=== PATIENT | female | born 1965 | race American Indian/Alaskan Native ===

== ENCOUNTER 2017-11-20 10:48 | Emergency (ER) | payer OTHER ==
--- NOTE | 2017-11-20 11:16 | Emergency Department Report ---
ED Extremity Problem HPI - General Chief complaint: Extremity Injury, Lower Stated complaint: LEFT THIGH PAIN Time Seen by Provider: 11/20/17 11:16 Source: patient, family Mode of arrival: Ambulatory Limitations: No Limitations - History of Present Illness Initial comments: Visit was due to-year-old female here reports that she is on her left thigh pain for 2days. Report pain is 10 out of 10, sharp and achy. She says she took [id number] Tylenol without any relief. Denies any history of back pain or known history of arthritis. Last menstrual cycle was several in 2018 denies any nausea or vomiting. Denies any numbness or tachycardia when to extremities. Denies any trauma to extremities. She has a history of high blood pressure. She is here to be evaluated. She did not take any pain medication prior to coming to the hospital. MD Complaint: extremity pain Onset/Timin -: days(s) Location: left, lower extremity History of Same: No -: No myalgia, Yes arthralgia, No fever, No associated dyspnea, No associated chest pain Radiation: none Severity scale (0 -10): 10 Quality: aching, sharp Consistency: constant Improves with: rest Worsens with: walking, exertion Associated Symptoms: arthralgias. denies: chest pain, shortness of breath, fever, myalgias, rash - Related Data Previous Rx's Medication Instructions Recorded Last Taken Type Cyclobenzaprine [Flexeril] 10 mg PO TID PRN #15 tablet 11/20/17 Unknown Rx traMADol [Ultram] 50 mg PO Q6HR PRN #15 tablet 11/20/17 Unknown Rx Allergies Allergy/AdvReac Type Severity Reaction Status Date / Time No Known Allergies Allergy Unverified 11/20/17 11:05 ED Review of Systems ROS: Stated complaint: LEFT THIGH PAIN Other details as noted in HPI Constitutional: denies: chills, fever ENT: denies: ear pain, throat pain, congestion Respiratory: denies: cough, shortness of breath, SOB with exertion, SOB at rest , wheezing Cardiovascular: denies: chest pain, palpitations, edema, syncope Gastrointestinal: denies: abdominal pain, nausea, vomiting, diarrhea, constipation Genitourinary: denies: urgency, dysuria, discharge Musculoskeletal: arthralgia. denies: back pain, joint swelling, myalgia Skin: denies: rash, lesions Neurological: abnormal gait. denies: headache, weakness, numbness, paresthesias , vertigo ED Past Medical Hx - Past Medical History Previous Medical History?: Yes Hx Hypertension: Yes - Surgical History Past Surgical History?: Yes Additional Surgical History: tubaligation - Family History Family history: hypertension - Social History Smoking Status: Never Smoker Substance Use Type: Prescribed - Medications Home Medications: Home Medications Medication Instructions Recorded Confirmed Last Taken Type Cyclobenzaprine [Flexeril] 10 mg PO TID PRN #15 tablet 11/20/17 Unknown Rx traMADol [Ultram] 50 mg PO Q6HR PRN #15 tablet 11/20/17 Unknown Rx ED Physical Exam - General Limitations: No Limitations General appearance: alert, in no apparent distress - Head Head exam: Present: atraumatic, normocephalic, normal inspection - Eye Eye exam: Present: normal appearance, PERRL, EOMI Pupils: Present: normal accommodation - ENT ENT exam: Present: normal exam, normal orophraynx, mucous membranes moist - Neck Neck exam: Present: normal inspection, full ROM, other (no C-spine tenderness). Absent: tenderness, lymphadenopathy - Respiratory Respiratory exam: Present: normal lung sounds bilaterally. Absent: respiratory distress, chest wall tenderness - Cardiovascular Cardiovascular Exam: Present: regular rate, normal rhythm, normal heart sounds. Absent: systolic murmur, diastolic murmur - GI/Abdominal GI/Abdominal exam: Present: soft, normal bowel sounds. Absent: distended, tenderness, guarding, rebound, rigid - Extremities Exam Extremities exam: Present: normal inspection, full ROM, normal capillary refill , other (no clubbing, cyanosis or edema. Pulses 2+ extremities and no neurovascular compromise. +5 strength all extremities. No contusion, laceration or abrasion to extremities.). Absent: tenderness, pedal edema, joint swelling, calf tenderness - Expanded Lower Extremity Exam Left Hip exam: Present: normal inspection, full ROM, pelvic stability. Absent: tenderness, swelling, abrasion, laceration, ecchymosis, deformity, crepidus, dislocation, erythema, external rotation, internal rotation, shortening Upper Leg exam: Present: normal inspection, full ROM. Absent: tenderness, swelling, abrasion, laceration, ecchymosis, deformity, crepidus, dislocation, erythema Knee exam: Present: normal inspection, full ROM, full knee extension. Absent: tenderness, swelling, abrasion, laceration, ecchymosis, deformity, crepidus, dislocation, erythema, effusion, pain w/ pronation/supination, posterior draw sign, pain/laxity with valgus, pain/laxity with varus Lower Leg exam: Present: normal inspection, full ROM. Absent: tenderness, swelling, abrasion, laceration, ecchymosis, deformity, crepidus, dislocation, erythema, palpable cord, Giuseppe's sign Ankle exam: Present: normal inspection, full ROM. Absent: tenderness, swelling , abrasion, laceration, ecchymosis, deformity, crepidus, dislocation, erythema Foot/Toe exam: Present: normal inspection, full ROM. Absent: tenderness, swelling, abrasion, laceration, ecchymosis, deformity, crepidus, dislocation, erythema, amputation, puncture wound, foreign body, calcaneal tenderness, tenderness at base of 5th metatarsal, nail avulsion, subungual hematoma Neuro vascular tendon exam: Present: no vascular compromise. Absent: pulse deficit, abnormal cap refill, motor deficit, sensory deficit, tendon deficit, extremity cold to touch, pallor, abnormal 2-point discrimination, decreased fine /light touch, foot drop, peroneal nerve deficit, significant pain with passive ROM of distal joint Gait: Positive: observed and limited by pain - Back Exam Back exam: Present: normal inspection, full ROM, other (ambulates without any difficulties). Absent: tenderness, CVA tenderness (R), CVA tenderness (L), muscle spasm, paraspinal tenderness, vertebral tenderness, rash noted - Expanded Back Exam Expanded Back exam: Negative Straight Leg Raising: Left, Right - Neurological Exam Neurological exam: Present: alert, oriented X3, abnormal gait (patient noticed to be limping due to pain to left thigh), reflexes normal. Absent: motor sensory deficit - Psychiatric Psychiatric exam: Present: normal affect, normal mood - Skin Skin exam: Present: warm, dry, intact, normal color. Absent: rash ED Course Vital Signs 11/20/17 11/20/17 11/20/17 11:05 12:37 13:37 Temperature 98.1 F Pulse Rate 89 Respiratory 18 18 18 Rate Blood Pressure 128/90 O2 Sat by Pulse 97 Oximetry - Reevaluation(s) Reevaluation #1: 11/20/17 14:46 ED Medical Decision Making - Lab Data Result diagrams: 11/20/17 13:08 Lab Results 11/20/17 11/20/17 Range/Units 13:08 13:08 WBC 9.6 (4.5-11.0) K/mm3 RBC 4.56 (3.65-5.03) M/mm3 Hgb 12.8 (10.1-14.3) gm/dl Hct 39.5 (30.3-42.9) % MCV 87 (79-97) fl MCH 28 (28-32) pg MCHC 32 (30-34) % RDW 15.7 H (13.2-15.2) % Plt Count 233 (140-440) K/mm3 Lymph % (Auto) 37.7 H (13.4-35.0) % [place] % (Auto) 9.2 H (0.0-7.3) % Eos % (Auto) 1.1 (0.0-4.3) % Baso % (Auto) 0.3 (0.0-1.8) % Lymph # 3.6 (1.2-5.4) K/mm3 [place] # 0.9 H (0.0-0.8) K/mm3 Eos # 0.1 (0.0-0.4) K/mm3 Baso # 0.0 (0.0-0.1) K/mm3 Seg Neutrophils % 51.7 (40.0-70.0) % Seg Neutrophils # 5.0 (1.8-7.7) K/mm3 PT 14.1 (12.2-14.9) Sec. INR 1.04 (0.87-1.13) APTT 34.9 (24.2-36.6) Sec. - Radiology Data Radiology results: report reviewed left lower extremity venous duplex Doppler reveals no evidence of DVT or SVT. See preliminary report below. Final report to follow. JAMIR WISEMAN Female : 1965 [facility]# [id number] 11/20/17 11:57 - Radiology Dept. Note by YUMI LIRIANO Acct Num: [id number] : 1965 Patient Age: 52 VASCULAR LAB.PRELIMINARY REPORT. LLE VENOUS DUPLEX DONE. NO EVIDENCE OF DVT/SVT IN VESSELS VISUALIZED. Initialized on 11/20/17 11:57 - END OF NOTE X-ray of left femur and lumbar spine dictated by radiologist and report reviewed by myself. See report below Findings [address] [address] Ordering Physician: ZULMA APARICIO Date of Service: 11/20/17 Procedure(s): XR femur 2+V LT Accession Number(s): [id number] cc: ZULMA APARICIO Fluoro Time In Minutes: LEFT FEMUR RADIOGRAPHS INDICATION: Left thigh pain. No trauma. COMPARISON: None similar. FINDINGS: AP and lateral left femur radiographs demonstrate intact bones. Unremarkable soft tissues. Possible osteopenia. Mild knee degenerative changes suspected. CONCLUSION: No acute left femur radiographic abnormality, as described. Please correlate. Thank you for the opportunity to participate in this patient's care. Transcribed By: RS Dictated By: CARLOS COKER MD Electronically Authenticated By: CARLOS COKER MD Signed Date/Time: 11/20/17 1314 DD/ 1312 TD/TT: 11/20/17 [address] [address] XRay Report Signed Patient: JAMIR WISEMAN MR#: [id number] : 1965 Acct:[id number] Age/Sex: 52 / F ADM Date: 11/20/17 Loc: ED Attending Dr: Ordering Physician: ZULMA APARICIO Date of Service: 11/20/17 Procedure(s): XR spine lumbosacral 2-3V Accession Number(s): [id number] cc: ZULMA APARICIO Fluoro Time In Minutes: LUMBAR SPINE RADIOGRAPHS INDICATION: Radiculopathy left lower extremity. COMPARISON: None similar. FINDINGS: AP and lateral lumbar spine radiographs demonstrate normal vertebral body stature and alignment. Uniform disc heights. Mid to lower lumbar facet arthropathy possible. Intact SI joints. Possible osteopenia. Nonobstructive bowel gas pattern. CONCLUSION: No acute lumbar spine radiographic abnormality, as described. Thank you for the opportunity to participate in this patient's care. Transcribed By: RS Dictated By: CARLOS COKER MD Electronically Authenticated By: CARLOS COKER MD Signed Date/Time: 11/20/171315 DD/ 14 TD/TT: 11/20/171315 - Medical Decision Making 11/20/17 14:43 ED course This is a 53-year-old female here for left eye pain 2 days. She says she took Tylenol plain and this did not relieve her pain. She does have access to primary care. She said pain is 10 out of 10 and aching and sharp. Tylenol is not helping her pain. Denies any trauma or any injuries to left thigh. Denies any known back problems or denies any history of arthritis, stenosis to lower back. Patient is here to be evaluated Patient was seen and examined by myself. Physical findings with normal back and neurological exam. Patient noted to be limping but does not have any tenderness, ecchymosis, laceration or abrasion to extremities to include left thigh. She had CBC and PT/PTT done which were stable. Patient had left lower extremity venous Doppler duplex done and limited area reports dictated which shows no DVT or SVT. She had x-ray of lumbar spine and left femur which was dictated by radiologist and report reviewed by myself and no acute finding except for findings for osteopenia and mild degeneration arthritis. Villegas pain is controlled with pain medication and referred orthopedic. A/P 1: Arthralgia left thigh-patient given Percocet 5/55 2 tablets by mouth for pain which relieved her pain. I'll discharge her home and Ultram and Flexeril, follow-up with orthopedic doctor. Venous Doppler ultrasound negative findings for a suture DVT 2: Degenerative arthritis multiple sites-per x-ray of lumbar spine and left femur Patient educated on medication, diagnosis, treatment plan, labs and diagnostics findings. He voiced understanding. Patient discharged home in stable condition with her family. Her vital signs are stable and she is afebrile. She says she is feeling better. Patient to follow-up with orthopedic doctor in 4 days and her primary care physician tomorrow. I discussed with her if her conditions worsen to return to emergency room and she voiced understanding. - Differential Diagnosis fracture, DVT, degenerative arthritis, muscle strain, musculoskeletal pain Critical care attestation.: If time is entered above; I have spent that time in minutes in the direct care of this critically ill patient, excluding procedure time. ED Disposition Clinical Impression: Arthralgia of left thigh Osteoarthritis, multiple sites Qualifiers: Osteoarthritis type: unspecified Qualified Code(s): M15.9 - Polyosteoarthritis , unspecified Disposition: DC- TO HOME OR SELFCARE Is pt being admited?: No Does the pt Need Aspirin: No Condition: Stable Instructions: Osteoarthritis (ED), Arthralgia (ED) Additional Instructions: Please follow up with orthopedic doctor and your primary care physician as instructed. You can take vitamin D and calcium for osteopenia of bone. This condition is a precursor to osteoporosis. Osteopenia is a soft name of the bone which could lead to osteoporosis. If you take calcium and vitamin D this will help to strenghten bones rest aafected area 3 days Take Ultram for pain and Flexeril. Please do not drive or operate heavy machinery while taking this medication is taking cause drowsiness If your condition worsens, return to the emergency room Prescriptions: Cyclobenzaprine [Flexeril] 10 mg PO TID PRN #15 tablet PRN Reason: Muscle Spasm traMADol [Ultram] 50 mg PO Q6HR PRN #15 tablet PRN Reason: Pain Referrals: MAR MANE,JACKELYN Velasco [Other] - 11/21/17 BEN OSUNA MD [Staff Physician] - 11/24/17 Forms: Work/School Release Form(ED)
[2017-11-20] MEDS ORDERED: PERCOCET 5/325 PO ONE (11:18)
--- NOTE | 2017-11-20 13:22 | XRay Report ---
LEFT FEMUR RADIOGRAPHS INDICATION: Left thigh pain. No trauma. COMPARISON: None similar. FINDINGS: AP and lateral left femur radiographs demonstrate intact bones. Unremarkable soft tissues. Possible osteopenia. Mild knee degenerative changes suspected. CONCLUSION: No acute left femur radiographic abnormality, as described. Please correlate. Thank you for the opportunity to participate in this patient's care.
--- NOTE | 2017-11-20 13:24 | XRay Report ---
LUMBAR SPINE RADIOGRAPHS INDICATION: Radiculopathy left lower extremity. COMPARISON: None similar. FINDINGS: AP and lateral lumbar spine radiographs demonstrate normal vertebral body stature and alignment. Uniform disc heights. Mid to lower lumbar facet arthropathy possible. Intact SI joints. Possible osteopenia. Nonobstructive bowel gas pattern. CONCLUSION: No acute lumbar spine radiographic abnormality, as described. Thank you for the opportunity to participate in this patient's care.
[2017-11-20 13:51] LABS: Basophils % (Auto) 0.3 % (0.0-1.8); Eosinophils # (Auto) 0.1 K/mm3 (0.0-0.4); Eosinophils % (Auto) 1.1 % (0.0-4.3); Hematocrit 39.5 % (30.3-42.9); Hemoglobin 12.8 gm/dl (10.1-14.3); Lymphocytes # (Auto) 3.6 K/mm3 (1.2-5.4); Lymphocytes % (Auto) 37.7 % (13.4-35.0); Mean Corpuscular HGB Conc 32 % (30-34); Mean Corpuscular Hemoglobin 28 pg (28-32); Mean Corpuscular Volume 87 fl (79-97); Monocytes # (Auto) 0.9 K/mm3 (0.0-0.8); Monocytes % (Auto) 9.2 % (0.0-7.3); Platelet Count 233 K/mm3 (140-440); Red Blood Count 4.56 M/mm3 (3.65-5.03); Red Cell Distribution Width 15.7 % (13.2-15.2)
[2017-11-20 14:01] LABS: INR 1.04 (0.87-1.13)
[2017-11-20 14:02] LABS: Partial Thromboplastin Time 34.9 Sec. (24.2-36.6)
[2017-11-20 15:06] VITALS: BP 144/76
--- NOTE | 2017-11-24 15:43 | Vascular Lab Report ---
Left Lower Extremity Venous Duplex Study: Reason for Exam: Left thigh pain. Comments on the Right: A limited duplex study was done of the proximal veins of the right lower extremity. All veins visualized are freely compressible without evidence of internal echogenicity. Flow is spontaneous and phasic throughout. No evidence of acute or chronic thrombus is seen in any of the vessels visualized. Comments on the Left: All veins visualized are freely compressible without evidence of internal echogenicity. Flow is spontaneous and phasic throughout. No evidence of acute or chronic thrombus is seen in any of the vessels visualized. Impression: No evidence of acute or chronic deep venous thrombosis in the left lower extremity.
== END 2017-11-20 15:04 | disposition home or self-care (01) ==
LOC: ED 10:48
DX: M79.652 Pain in left thigh (principal); M15.9 Polyosteoarthritis, unspecified; I10 Essential (primary) hypertension; Z98.51 Tubal ligation status
CPT/HCPCS: 36415; 72100; 85025; 85610; 85730